=== PATIENT | female | born 1965 ===

== ENCOUNTER 2017-05-23 07:06 | Emergency (ER) | payer BC ==
--- NOTE | 2017-05-23 07:11 | UC ---
Throat Pain/Nasal Garry HPI - HPI Summary HPI Summary: 51 year old female presents with complains of cough, nasal congestion and sore throat. - History of Current Complaint Stated Complaint: ST/EAR ACHE/CHEST CONGESTION Time Seen by Provider: 05/23/17 07:09 - Allergies/Home Medications Allergies/Adverse Reactions: Allergies Allergy/AdvReac Type Severity Reaction Status Date / Time No Known Allergies Allergy Verified 05/23/17 07:14 Review of Systems Constitutional: Negative Skin: Negative Eyes: Negative ENT: Sore Throat, Nasal Discharge, Sinus Congestion Respiratory: Negative Cardiovascular: Negative Gastrointestinal: Negative Genitourinary: Negative Motor: Negative Neurovascular: Negative Musculoskeletal: Negative Neurological: Negative Psychological: Negative All Other Systems Reviewed And Are Negative: Yes Physical Exam Triage Information Reviewed: Yes Eye Exam: Normal ENT: Positive: Pharyngeal erythema, Nasal congestion, Nasal drainage Dental Exam: Normal Neck exam: Normal Neck: Positive: 1 Respiratory Exam: Normal Cardiovascular Exam: Normal Abdominal Exam: Normal Musculoskeletal Exam: Normal Neurological Exam: Normal Psychological Exam: Normal Skin Exam: Normal Throat Pain/Nasal Course/Dx - Differential Dx/Diagnosis Provider Diagnoses: allergic rhinnitis Discharge - Discharge Plan Condition: Stable Disposition: HOME Prescriptions: Azithromyxin KITTY (NF) [Z-Kitty (Zithromax) 250 mg tabs #6] 2 tab PO .TODAY, THEN 1 DAILY #6 tab LoraTADine TAB(NF) [Claritin 10 MG TAB(NF)] 10 mg PO DAILY #30 tab Magic M W2 Norris/Maal/Nyst/Lido* 15 ml SWISH SPIT QID #120 ml guaiFENesin/CODIEN 100MG-10MG* [Robitussin AC 100Mg-10Mg*] 5 ml PO Q6H PRN #120 udc MDD 20 ml PRN Reason: Cough Patient Education Materials: Sinusitis (ED) Referrals: Non Staff,Doctor [Primary Care Provider] -
[2017-05-23 07:14] VITALS: BP 127/73
== END 2017-05-23 07:50 | disposition home or self-care (01) ==
LOC: UCCORT 07:06
DX: J30.9 Allergic rhinitis, unspecified (principal)
CPT/HCPCS: 87651; 99202; G0463